=== PATIENT | male | born 1930 | race Caucasian/White ===

== ENCOUNTER 2019-06-17 04:30 | Inpatient (IN) ==
--- NOTE | 2019-06-17 06:11 | PROVIDER DOCUMENTATION ---
HPI-Musculoskeletal Pain/Inj - GENERAL Chief Complaint: Fall Stated Complaint: fall Time Seen by Provider: 06/17/19 06:06 Source: patient - HX OF PRESENT ILLNESS-MUSKULOSKELTAL Nature of Presenting Problem: amanda alone in house demented placed innursing home problems getting around in house he falls 2 hours to finally get up big fall risk Quality of Pain: reports: aching, throbbing Severity in ED: moderate Onset/Duration: gradual Timing: still present, getting worse Modifying Factors: improves with: analgesics, massage. worse with: exercise, movement Any recent injury?: No Locality of Occurance: Home Similar Symptoms Previously?: No Recently seen or treated by another doctor?: No Review of Systems - Adult - REVIEW OF SYSTEMS - ADULT Constitutional: reports: no symptoms reported Eyes: reports: no symptoms reported, dry eyes Cardiovascular: reports: no symptoms reported Respiratory: reports: no symptoms reported Gastrointestinal: reports: no symptoms reported Genitourinary: reports: no symptoms reported Musculoskeletal: reports: no symptoms reported Integumentary: reports: no symptoms reported Neurological: reports: no symptoms reported, headache/migraines Psychiatric: reports: no symptoms reported Endocrine: reports: no symptoms reported Hematologic/Lymphatic: reports: no symptoms reported Allergic/Immunologic: reports: no symptoms reported Past History - Adult - PAST MEDICAL HISTORY-ADULT Review of Records: reports: Nursing Assessment Review, Medications Reviewed, Social history reviewed & non-contributory. Major Childhood Illnesses: reports: denies history Cardiovascular: reports: pacemaker Respiratory: reports: COPD - PRIOR SURGERIES/PROCEDURES Surgical/Procedure History: reports: appendectomy, cholecystectomy, pacemaker, tonsillectomy - IMMUNIZATION STATUS Childhood Immunizations: See Nurse Assessment Flu Vaccine: See Nurse Assessment - FAMILY HISTORY Family History: reviewed, not pertinent Physical Exam-Injury Related - Physical Exam-Injury Related Initial Vital Signs Reviewed: Yes General Appearance: appears well, alert Eyes: PERRL/EOMI, pink conjunctivae Head, Ears, Nose, Mouth & Throat: normocephalic/atraumatic, TMs normal Neck: non-tender, full range of motion, supple Respiratory: chest non-tender, lungs clear Cardiovascular: normal peripheral pulses, regular rate, rhythm Abdominal Exam: normal bowel sounds, non tender, soft Lymphatic: no adenopathy Back Exam: normal inspection Integumentary: normal color, warm/dry Neurologic: grossly normal Psych/Mental Status: normal thought process - Glascow Coma Score Best Eye Response ([place]): (4) open spontaneously Best Verbal Response ([place]): (5) oriented Best Motor Response ([place]): (6) obeys commands Progress - PLAN OF CARE/RESULTS Progress/Plan/Lab Results: Vital Signs - 8 hr 06/17/19 04:32 Temperature 98.2 F Pulse Rate 70 Respiratory Rate 12 Blood Pressure 167/107 O2 Sat by Pulse Oximetry 96 Laboratory Results - last 24 hr 06/17/19 06:25 WBC 8.89 RBC 4.29 L Hgb 13.6 L Hct 42.8 MCV 99.8 H MCH 31.7 H MCHC 31.8 L RDW Std Deviation 14.9 H Plt Count 210 MPV 10.2 Immature Gran % (Auto) 0.2 Neut % (Auto) 65.1 Lymph % (Auto) 21.6 [place]olls % (Auto) 11.6 H Eos % (Auto) 1.3 Baso % (Auto) 0.2 Immature Gran # (Auto) 0.02 Neut # (Auto) 5.78 Lymph # (Auto) 1.92 [place]olls # (Auto) 1.03 H Eos # (Auto) 0.12 Baso # (Auto) 0.02 Orders Category Date Time Status CBC WITH ELECTRONIC DIFF [HEME] Stat Lab 06/17/19 06:25 Completed CK PROFILE [SP CHEM] Stat Lab 06/17/19 06:25 Received COMPREHENSIVE METABOLIC PANEL [CHEM] Stat Lab 06/17/19 06:25 Received TROPONIN T Stat Lab 06/17/19 06:25 Received TSH Stat Lab 06/17/19 06:25 Received EKG [EKG] Routine Ther 06/17/19 06:14 Draft Result Diagrams: 06/17/19 06:25 06/17/19 06:25 - EKG 1 Time of EKG reading by physician:: 06:58 (n) EKG Read and Signed by:: Haroon Marquis EKG Interpretation (*Must complete 3 of following elements*): Abnormal Rate: 70 Rhythm: pacer [place]: normal QRS: normal [place] Interval: prolonged (290) ST Wave: normal - CONSULTS/PCP/HOSPITALIST Notification #1 *Consult/PCP/Hospitalist*: Dr Marquis Time Discussed: 09:43 Reason/Comments: asked for social worker assistant consult Consult Disposition: Admit Departure - Departure Date of Disposition Decision: 06/17/19 Time of Disposition Decision: 09:43 DIAGNOSIS: Dizziness, Syncope and collapse, Hyperkalemia, Renal insufficiency, Supratherapeutic INR Disposition: ADMITTED INPATIENT 09 Certified Medical Emergency: Emergent Condition: Fair Referrals and Follow-Ups: Haroon Marquis MD [Primary Care Provider] - - Critical Care Note This patient required my direct & personal management of CC.: Yes Attestation - Physician/ CARSON Attestation Patient care was provided by Advanced Practice Provider:: No The physician spent face to face time with patient:: Yes Advanced Practice Provider documentation review:: Supervising physician onsite and consulted in the evaluation and care of this patient. The physician did have a face to face encounter with the patient.
--- NOTE | 2019-06-17 06:22 | EKG Report ---
Test Performed on : 06/17/2019 06:20:26 AM Test Reason : emboli Blood Pressure : / mmHG Vent. Rate : 070 BPM Atrial Rate : 070 BPM P-R Int : 290 ms QRS Dur : 092 ms QT Int : 426 ms P-R-T Axes : 000 030 -23 degrees QTc Int : 460 ms Atrial-paced rhythm with prolonged AV conduction Abnormal ECG No previous ECGs available Unconfirmed Result
[2019-06-17 06:36] LABS: BASO# 0.02 X1000 (0.0-0.2); BASO% 0.2 % (0.0-0.8); EOS# 0.12 X1000 (0.0-0.7); EOS% 1.3 % (0.0-10.0); HEMATOCRIT 42.8 % (42.0-52.0); HEMOGLOBIN 13.6 g/dL (14.0-18.0); IMM GRAN# 0.02 X1000 (0.0-0.04); IMM GRAN% 0.2 % (0.0-0.5); LYMPH# 1.92 X1000 (1.2-3.4); LYMPH% 21.6 % (20.5-51.1); MCH 31.7 PG (27-31); MCHC 31.8 g/dL (33-37); MCV 99.8 FL (81-99); MONO# 1.03 X1000 (0.11-0.59); MONO% 11.6 % (1.7-9.3); MPV 10.2 FL (7.4-10.4); NEUT# 5.78 X1000 (1.4-6.5); NEUT% 65.1 % (42.2-75.2); PLT 210 X1000 (130-400); RBC 4.29 XMIL (4.7-6.1); RDW 14.9 % (11.5-14.5); WBC 8.89 X1000 (4.8-10.8)
[2019-06-17 07:00] LABS: ALBUMIN 3.8 g/dL (3.5-5.0); CALCIUM 9.1 mg/dL (8.8-10.2); CREATININE 3.1 mg/dL (0.7-1.2); POTASSIUM 5.8 mmol/L (3.5-5.1); TOTAL BILIRUBIN 0.4 mg/dL (0.20-1.00); TOTAL PROTEIN 6.1 g/dL (6.3-8.3)
[2019-06-17] MEDS ORDERED: KAYEXALATE PO ONE (07:30)
--- NOTE | 2019-06-17 08:54 | Diag Imaging Result Doc PS360 ---
EXAM: CT HEAD W/O CONTRAST - 06/17/2019 HISTORY: fall, takes coumadin, dizzy TECHNIQUE: CT head without contrast COMPARISON: 07/05/2018 FINDINGS: There are atrophic changes similar to prior. 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 There is no indication of recent infarct, although acute infarcts may not be immediately visible. There are atherosclerotic calcifications noted at the base of the brain. There is no evidence of intracranial hemorrhage, mass effect, or midline shift. There is no evidence of skull fracture. Visualized portions of paranasal sinuses and mastoid air cells appear clear except for mucous retention cyst at the visualized left maxillary sinus. IMPRESSION: Atrophic changes and chronic ischemic changes similar to prior. No visible acute intracranial abnormality. No evidence of intracranial injury. This exam was performed using automated exposure control, adjustment of mA or kV according to patient size, and/or use of iterative reconstruction technique. Electronically signed by Frederick Urbina 06/17/2019 8:52 AM
--- NOTE | 2019-06-17 09:12 | Diag Imaging Result Doc PS360 ---
EXAM: RIBS UNILAT W/PA CHEST LEFT HISTORY: fall, lt chest wall injury TECHNIQUE: Chest and left rib detail, four views COMPARISON: 12/21/2018 FINDINGS: The left hemidiaphragm is elevated similar to the prior exam. No contusion. No pneumothorax. There is a left-sided pacemaker. No displaced fracture or other rib abnormality. IMPRESSION: No injury. Electronically signed by Troy Donald 06/17/2019 9:09 AM
[2019-06-17 09:41] LABS: INR 4.08
[2019-06-17 09:42] LABS: PROTIME 42.2 Seconds (11.0-16.0); PTT 43.6 Seconds (22.3-41.8)
[2019-06-17] MEDS ORDERED: NS 1,000 ML IV ONE (09:48)
[2019-06-17] MEDS: ULTRAM PO PRN (18:43)
[2019-06-18] MEDS: ULTRAM PO PRN ×2 (10:37→19:01)
--- NOTE | 2019-06-18 16:56 | PROGRESS NOTE ---
DATE: 06/18/2019 This is an 89-year-old white male who I see in the office, who has underlying kidney disease. He sees a automatic pinsetter adjuster. Lately, his , who lived with him, now is in a mental facility for Alzheimer's disorder. He is currently taking amiodarone 200 mg daily, atenolol 100 p.o. b.i.d., Calcitriol 0.25 daily, lorazepam 0.5 p.o. p.r.n., nifedipine 60 daily, simvastatin 0.5 tablets, tramadol 50 q four hours p.r.n., Coumadin 2.5. He is allergic to flecainide, oxytetracycline. Today, he is alert. He is a little sore from his falling around but he has mostly been bedridden since he has been here in the hospital. We are trying to make arrangements for him to be seen in a facility where he might be physically trained. His temperature is 98 degrees, pulse is 68, respiratory rate is 22, blood pressure 157/90, O2 saturation was 99%. His CBC - hematocrit is okay. Chemistries: Sodium 142, potassium 5.8, chloride 108, CO2 was 24, BUN 35, creatinine 3.1, total protein 6.1. Troponin was 0.019. CK 58. TSH 368. Coagulation panel was a little long, INR 4. CBC was otherwise negative. Will continue to monitor him. We are going to redraw his medications today. Hopefully, we get him in a rehab. cc: Haroon Marquis MD MTDD
[2019-06-18 17:32] LABS: BASO# 0.01 X1000 (0.0-0.2); BASO% 0.1 % (0.0-0.8); EOS# 0.09 X1000 (0.0-0.7); EOS% 0.7 % (0.0-10.0); HEMATOCRIT 40.5 % (42.0-52.0); HEMOGLOBIN 13.1 g/dL (14.0-18.0); IMM GRAN# 0.02 X1000 (0.0-0.04); IMM GRAN% 0.2 % (0.0-0.5); LYMPH# 1.41 X1000 (1.2-3.4); LYMPH% 11.5 % (20.5-51.1); MCH 32.1 PG (27-31); MCHC 32.3 g/dL (33-37); MCV 99.3 FL (81-99); MONO# 1.15 X1000 (0.11-0.59); MONO% 9.4 % (1.7-9.3); MPV 10.2 FL (7.4-10.4); NEUT# 9.57 X1000 (1.4-6.5); NEUT% 78.1 % (42.2-75.2); PLT 202 X1000 (130-400); RBC 4.08 XMIL (4.7-6.1); RDW 14.6 % (11.5-14.5); WBC 12.25 X1000 (4.8-10.8)
[2019-06-18 17:55] LABS: ALBUMIN 3.6 g/dL (3.5-5.0); CALCIUM 8.6 mg/dL (8.8-10.2); CREATININE 2.5 mg/dL (0.7-1.2); POTASSIUM 4.1 mmol/L (3.5-5.1); TOTAL BILIRUBIN 0.5 mg/dL (0.20-1.00)
[2019-06-19] MEDS: ULTRAM PO PRN ×3 (01:00→18:23)
[2019-06-19] MEDS: TENORMIN PO SCH ×2 (09:21→20:33)
[2019-06-19] MEDS: CORDARONE PO SCH (09:21)
[2019-06-19] MEDS: ROCALTROL PO SCH (09:21)
[2019-06-19] MEDS: ADALAT CC PO SCH (09:21)
[2019-06-19] MEDS: COUMADIN PO SCH (20:33)
[2019-06-19] MEDS: ZOCOR PO SCH (20:33)
[2019-06-19] MEDS: ATIVAN PO PRN (20:33)
[2019-06-20] MEDS: ULTRAM PO PRN ×3 (01:58→23:13)
[2019-06-20] MEDS: ROCALTROL PO SCH (08:57)
[2019-06-20] MEDS: CORDARONE PO SCH (08:57)
[2019-06-20] MEDS: TENORMIN PO SCH ×2 (08:57→20:35)
[2019-06-20] MEDS: ADALAT CC PO SCH (08:57)
--- NOTE | 2019-06-20 14:21 | PROGRESS NOTE ---
DATE: 06/20/2019 He is admitted here because of failure to thrive as an outpatient and multiple falls and inability to get up, with a background history of hypertension, some chronic renal insufficiency. His BUN is 35 and 31, creatinine was 3.1 and is currently 2.5. He is able to get up with a good bit of assistance, but he has no strength and balance, and he is a constant fall risk. We think we need to rehab him, as his has been hospitalized on a demented area of the hospital. He apparently does not do much at home without her, but she has been significantly demented since this has all taken place. cc: Haroon Marquis MD
[2019-06-20] MEDS: ATIVAN PO PRN (20:35)
[2019-06-20] MEDS: COUMADIN PO SCH (20:35)
[2019-06-20] MEDS: ZOCOR PO SCH (20:35)
[2019-06-21] MEDS: ROCALTROL PO SCH (08:57)
[2019-06-21] MEDS: TENORMIN PO SCH ×2 (08:57→21:29)
[2019-06-21] MEDS: CORDARONE PO SCH (08:57)
[2019-06-21] MEDS: ADALAT CC PO SCH (08:57)
[2019-06-21] MEDS: ULTRAM PO PRN ×2 (10:29→14:57)
[2019-06-21] MEDS: COUMADIN PO SCH (21:28)
[2019-06-21] MEDS: ZOCOR PO SCH (21:28)
[2019-06-22] MEDS: CORDARONE PO SCH (10:40)
[2019-06-22] MEDS: ROCALTROL PO SCH (10:40)
[2019-06-22] MEDS: TENORMIN PO SCH (10:40)
[2019-06-22] MEDS: ADALAT CC PO SCH (10:40)
[2019-06-22] MEDS: ULTRAM PO PRN (10:45)
--- NOTE | 2019-06-22 12:20 | PROGRESS NOTE ---
DATE: 06/21/2019 SUBJECTIVE: The patient is, as usual, in bed. Not in a chair. He is concerned about getting placement, as he has no relatives down here in [place]. OBJECTIVE: Today, his temperature is 97.9, pulse was 70, respiratory rate was 18, blood pressure 119/52, O2 saturation was 96% on room air. ASSESSMENT AND PLAN: He continues to have a little bit of pain, seems to be eating a little bit better. Hopefully we will get a place to help rehab this gentleman and see if he is able to stay at home alone and take care of himself. cc: Haroon Marquis MD
--- NOTE | 2019-06-22 14:02 | DISCHARGE SUMMARY ---
ADMISSION DATE: 06/17/2019 DISCHARGE DATE: 06/22/2019 He is an 89-year-old male who has a history of hypertension, renal insufficiency, pacemaker, history of a subarachnoid hemorrhage in the distant past, who lives with his who is now in a retirement for her severe dementia. He, however, has limited skeletal issues. He is a big fall risk. He has been falling, and it is getting harder and harder for him to get up. He claims he fell, crawled around on the bed, finally got up in it, and it took him about 2 hours to do that. He got a hold of some neighbors and ended up coming to the emergency room where he was x-rayed and evaluated. His evaluation was basically no fractures or dislocations. He has chronic renal disease. He has had some issues getting up in the hospital, gripping and furniture and rojo to get around. So in order to see if he can make it back and stay in his house here in [place], I think he needs to be rehabbed, and we are going to send him to rehab to see if we can strengthen him or use whatever device is needed to keep him staying in his home. Otherwise, he has no place to stay. cc: Haroon Marquis MD
--- NOTE | 2019-06-22 14:07 | HISTORY AND PHYSICAL ---
HISTORY OF PRESENT ILLNESS: The patient is a clinic patient of mine who has been taking care of his demented , who has been put in a rehab long term facility, and he is basically alone in the house and has had some problems with falling trying to go to the bathroom, took him 2 hours to get up on 1 particular occasion. He has to hold onto the rojo to get about and he basically needs some Physical Therapy to strengthen him and help him walk and reduce his issues with falling. He has hurt his back in the fall, it is worsened by movement or getting up from a prone position or seated position. So, in the ER he had some imaging. He had a head CT that was chronic ischemic changes unchanged from prior films. No indication of recent infarction. Atherosclerotic calcifications observed in the spine. He was hurting in his ribcage and chest with rib detail 4 view revealed no contusion, no pneumothorax, a left-sided pacemaker, no displaced fractures of ribs, no apparent injuries. So, he was admitted to the hospital for pain control and he was admitted for placement if he does not improve with pain medications. He has some issues with chronic kidney disease. He has problems with his musculoskeletal system, moving about. He has been aided by various relatives direct or indirect relatives that come over by his house and help him out. ALLERGIES: He is allergic to flecainide, oxytetracycline. He had some lab done during his presentation. His white count was 8890, hematocrit was 42.8, platelet count was 210. Chemistries: Sodium 142, potassium 5.8, chloride 108, CO2 24, BUN 35, creatinine 3.1. He does have renal disease. His estimated GFR is 19. BUN and creatinine ratio is 11. Liver functions are fine. TSH is 3.68. Troponin is 0.019. REVIEW OF SYSTEMS: He has no fever or chills. He is pretty limited in his physical activities secondary to his chronic skeletal problems. He has had some weight loss but no significant weight loss. He has a normal appetite. Eyes: No change in visual acuity. No irritation of his eyes. Cardiovascular: He denies any chest pain, palpitations, peripheral edema. He has a pacemaker. Pulmonary: He has no significant cough, wheeze, not particularly short of breath, cannot do much get short of breath. Gastrointestinal: He denies any nausea, vomiting, diarrhea, constipation, black or bloody stools. Genitourinary: Some lower urinary tract obstructive symptoms otherwise negative. Some hesitancy and nocturia and slow stream. Musculoskeletal: He has some chest wall pain and lower back pain from his recent fall. Skin: There is no obvious bruising or ecchymoses or swelling. Neurological: No focal neurological deficit. He has a history of migraines in the past. Psychiatric: No history of any active psychiatric illnesses. Endocrine: No polyuria, polydipsia, hypothermia. Hematological: No bleeding or clotting disorders. Allergic: Negative. PAST MEDICAL HISTORY: He has a history of COPD. He has had a history of an appendectomy, cholecystectomy, pacemaker placement, tonsillectomy. He has had a subarachnoid hemorrhage in the past distantly. PHYSICAL EXAMINATION: HEAD: Head was normocephalic. GENERAL: He was alert and awake and oriented to person, place, and time. EYES: PERRL. EOMs intact. Conjunctiva clear. TMs were normal. NECK: Supple. Full range of motion. Midline trachea. Without bruits. RESPIRATORY: Clear, nontender chest. Lungs were clear. CARDIOVASCULAR EXAM: He had a regular rhythm and rate. Peripheral pulses were present. ABDOMEN: Soft. No hepatosplenomegaly. steam box tender in his lower sacroiliac area and lumbar spine. LYMPHATICS: No lymphadenopathy. SKIN: Clear. NEUROLOGICAL: Symmetrical. PSYCHIATRIC: Normal. [*]response was 4, verbal response 5, best motor was 6. VITAL SIGNS: At the time of admission, his temperature was 98, pulse was 70, respiratory rate 12, BP 167/107, O2 saturation was 96. CBC: White count is already mentioned. So, he was admitted with an EKG that showed pacer rhythm 70, otherwise negative. So he was admitted so that we can observe his elevated BUN of 35, elevated creatinine 3.1, and potassium of 5.8, and look for some facility to help him with his significant fall risk. cc: Haroon Marquis MD [facility]
[2019-06-22 15:53] VITALS: BP 116/66
[2019-06-22] MEDS ORDERED: COUMADIN PO SCH (21:00)
== END 2019-06-22 16:24 | DRG 641 ==
LOC: P.ED 04:30 → P.MEDSURG 10:10
PROVIDERS: ADMIT Internal Medicine; ATTEND Internal Medicine